=== PATIENT | female | born 1950 | race Caucasian/White ===

== ENCOUNTER 2021-03-10 11:31 | Emergency (ER) | payer MEDICARE, BC, OTHER ==
[~2021-03-10] VITALS: Ht 167.6 cm; Wt 81.6 kg
[~2021-03-10 11:31] MED LIST: ACETAMINOPHEN325 M1 PO; ALBUTEROL0.63 MG/3 NEB; AMLODIPINE BESYL5 MG PO; ARICEPT5 MG PO; ASPIRIN81 MG PO; BENADRYL25 M1 PO; CALTRATE 600 W1 EACH PO; CARBIDOPA-LEVO1 EA10 PO; CLARITIN10 M2 PO; CRANBERRY400 MG PO; DONEPEZIL HCL5 MG PO; METOPROLOL TART50 MG PO; MULTI-VITAMIN1 EACH PO; NAMENDA10 MG PO; RISPERDAL1 MG PO; SERTRALINE HCL50 MG PO; SINEMET 25-1001 EACH PO
== END 2021-03-10 15:45 ==
LOC: ER 11:49
DX: M79.89 Other specified soft tissue disorders (principal); R23.3 Spontaneous ecchymoses; I10 Essential (primary) hypertension; F20.9 Schizophrenia, unspecified; G30.9 Alzheimer's disease, unspecified; G20 Parkinson's disease; F02.80 Dementia in other diseases classified elsewhere, unspecified severity, without behavioral disturbance, psychotic disturbance, mood disturbance, and anxiety
CPT/HCPCS: 93970; 99284